=== PATIENT | male | born 1960 | race Caucasian/White ===

== ENCOUNTER 2016-11-14 15:50 | Emergency (ER) | payer OTHER ==
--- NOTE | 2016-11-14 16:56 | DIAGNOSTIC IMAGING REPORT ---
PROCEDURE: XR CHEST 1 VIEW INDICATION: JAW PAIN TECHNIQUE: Portable AP view 04:22 p.m. COMPARISON: None. FINDINGS: Lungs are clear. Heart and mediastinum are normal. Thorax is normal. IMPRESSION: 1. Negative chest.
--- NOTE | 2016-11-14 18:51 | ED ORDER SUMMARY ---
..... Patient: MYRIAM BOWDEN OrderSheet [facility] VisitID: [id number] [address] [place] [address] 56y, M Registration Date/Time: 11/14/2016 ORDER SHEET Weight: 86.1 kg (stated) Allergies: No Known Drug Allergy GENERAL ORDERS: EKG - ER Stat (16:22 11/14/2016 DDean R.N. per protocol) (Ack 16:27 RKaruga) (16:27 RKaruga) Chest 1V Urgent (16:27 11/14/2016 PHutchinson DO) (17:23 DDean R.N.) (17:24 Bing) Project Director (Continuous) (16:11/14/2016 PHutchinson DO) (16:32 DDean R.N.) UA-Culture if indicated Urgent (16:28 11/14/2016 PHutchinson DO) (Ack 17:25 RKaruga) (17:29 DDean R.N.) Cardiac Panel Stat (16:28 11/14/2016 PHutchinson DO) (17:22 DDean R.N.) (Ack 17:25 RKaruga) BNP Urgent (16:28 11/14/2016 PHutchinson DO) (17:23 DDean R.N.) (Ack 17:25 RKaruga) Amylase Urgent (16:28 11/14/2016 PHutchinson DO) (17:23 DDean R.N.) (Ack 17:25 RKaruga) TSH Urgent (16:28 11/14/2016 PHutchinson DO) (17:23 DDean R.N.) (Ack 17:25 RKaruga) Vitals (16:28 11/14/2016 PHutchinson DO) (16:32 DDean R.N.) Pulse oximeter (16:28 11/14/2016 PHutchinson DO) (16:32 DDean R.N.) ESR Urgent (16:30 11/14/2016 PHutchinson DO) (17:23 DDean R.N.) (Ack 17:25 RKaruga) EKG - RT Repeat Stat (18:00 11/14/2016 [facility]) (Ack 18:07 RKaruga) (18:28 DDean R.N.) Lipase Urgent (18:37 11/14/2016 [facility]) (18:42 DDean R.N.) MEDICATION ORDERS: Aspirin PO 325 mg (NOW) (16:27 11/14/2016 [facility]) (Ack 17:07 DDean R.N.) (17:40 DDean R.N.) IV FLUIDS: IV NS : initial bolus 250 mL (1000 mL/hr), then 250 mL/hr for X3 (NOW) (16:27 11/14/2016 [facility]) (Ack 17:07 DDean R.N.) (17:24 DDean R.N.) Toradol IV 30 mg (NOW) (18:11 11/14/2016 [facility]) (18:29 DDean R.N.) ORDER SHEET NOTES: [Electronically signed by Carmella Ness R.N. (22:54 11/14/2016)] [Electronically signed by Myriam Estrada DO (07:53 11/15/2016)] [Electronically locked/signed by Carmella Ness R.N. (22:54 11/14/2016)]
--- NOTE | 2016-11-14 18:51 | ED ORDER SUMMARY ---
..... Patient: MYRIAM BOWDEN OrderSheet [facility] VisitID: [id number] [address] [place] [address] 56y, M Registration Date/Time: 11/14/2016 ORDER SHEET Weight: 86.1 kg (stated) Allergies: No Known Drug Allergy GENERAL ORDERS: EKG - ER Stat (16:22 11/14/2016 DDean R.N. per protocol) (Ack 16:27 RKaruga) (16:27 RKaruga) Chest 1V Urgent (16:27 11/14/2016 PHutchinson DO) (17:23 DDean R.N.) (17:24 Bing) Machine Brusher (Continuous) (16:11/14/2016 PHutchinson DO) (16:32 DDean R.N.) UA-Culture if indicated Urgent (16:28 11/14/2016 PHutchinson DO) (Ack 17:25 RKaruga) (17:29 DDean R.N.) Cardiac Panel Stat (16:28 11/14/2016 PHutchinson DO) (17:22 DDean R.N.) (Ack 17:25 RKaruga) BNP Urgent (16:28 11/14/2016 PHutchinson DO) (17:23 DDean R.N.) (Ack 17:25 RKaruga) Amylase Urgent (16:28 11/14/2016 PHutchinson DO) (17:23 DDean R.N.) (Ack 17:25 RKaruga) TSH Urgent (16:28 11/14/2016 PHutchinson DO) (17:23 DDean R.N.) (Ack 17:25 RKaruga) Vitals (16:28 11/14/2016 PHutchinson DO) (16:32 DDean R.N.) Pulse oximeter (16:28 11/14/2016 PHutchinson DO) (16:32 DDean R.N.) ESR Urgent (16:30 11/14/2016 PHutchinson DO) (17:23 DDean R.N.) (Ack 17:25 RKaruga) EKG - RT Repeat Stat (18:00 11/14/2016 [facility]) (Ack 18:07 RKaruga) (18:28 DDean R.N.) Lipase Urgent (18:37 11/14/2016 [facility]) (18:42 DDean R.N.) MEDICATION ORDERS: Aspirin PO 325 mg (NOW) (16:27 11/14/2016 [facility]) (Ack 17:07 DDean R.N.) (17:40 DDean R.N.) IV FLUIDS: IV NS : initial bolus 250 mL (1000 mL/hr), then 250 mL/hr for X3 (NOW) (16:27 11/14/2016 [facility]) (Ack 17:07 DDean R.N.) (17:24 DDean R.N.) Toradol IV 30 mg (NOW) (18:11 11/14/2016 [facility]) (18:29 DDean R.N.) ORDER SHEET NOTES: [Electronically signed by Carmella Ness R.N. (22:54 11/14/2016)] [Electronically signed by Myriam Estrada DO (07:53 11/15/2016)] [Electronically locked/signed by Carmella Ness R.N. (22:54 11/14/2016)]
--- NOTE | 2016-11-14 18:51 | ED NURSING NOTES ---
Clinical Report - Nurses [facility] [address] [place] [address] 11/14/2016 15:54 Patient: MYRIAM BOWDEN TRIAGE Triage time 1610. Acuity: LEVEL 3. Chief Complaint: (Pt c/o left sided jaw pain yesterday at 1600, lasting about 2 hours and than again last night for about 2 hours at o2oo , subsided slowly-- states oset again at 11am. just a dull ache now). BERENICE COMA SCORE: Reddell Coma Scale: 15- eyes open spontaneously (4); best verbal response- oriented x 4 (5); best motor response- obeys commands (6). --16:19 Carmella Ness R.N. 16:10 11/14/16. BP: 141/83. HR: 67. RR: 18. O2 saturation: 98%. Temp: 98.2 F. Pain level now: 12/08. --16:19 Carmella Ness R.N. BERENICE COMA SCORE: Berenice Coma Scale: 15- eyes open spontaneously (4); best verbal response- oriented x 4 (5); best motor response- obeys commands (6). --16:21 Carmella Ness R.N. Weight: 86.1 kg stated. Height/Length: 68 inches Per Patient. BMI: 28.9. --16:14 Carmella Ness R.N. Medications ASA 975mg at 0200 . --16:15 Carmella Ness R.N. Amino Acids Oral. Multivitamin Oral. None. --16:15 Carmella Ness R.N. Ginsing. --16:16 Carmella Ness R.N. Gin-Zing Oral. L-Tryptophan Oral. Voltaren-XR Oral, hs. --16:16 Carmella Ness R.N. Allergies No Known Drug Allergy. --16:14 Carmella Ness R.N. History Arrived by private vehicle. Historian: patient. Unaccompanied. No primary care physician. This started yesterday. ( No facial droop noted, speech is clear, transfer knitter equal and strong.). PAST MEDICAL HX: Negative. SURGERY HX: Tonsillectomy. SOCIAL HX: Never smoker. Occasional alcohol use. No drug use. --16:19 Carmella Ness R.N. SURGERY HX: ( RT. leg vericous vein surg 11/13). --16:20 Carmella Ness R.N. Interventions ID band on patient. To treatment room. --16:19 Carmella Ness R.N. PHYSICAL ASSESSMENT 16:10. Ambulatory to room. Patient gowned. GENERAL / NEURO / PSYCH: Alert. Oriented X 4. Appears anxious. RESPIRATORY: Respirations not labored. Chest nontender. CVS: Capillary refill less than 2 seconds. GI / : Abdomen soft. SKIN: Skin is warm and dry. --16:21 Carmella Ness R.N. NURSING PROGRESS NOTES 16:10. Patient gowned. Head of bed elevated. Reassurance given. Patient identifiers checked. Call light placed in reach. Side rails up. Bed placed in lowest position. Patient ready for evaluation- chart flagged. --16:19 Carmella Ness R.N. 16:24. EKG time: (1624). EKG was ordered, performed and shown to the ED physician. YOUSIF Harding. --16:23 Carmella Ness R.N. 16:40. Portable chest x-ray ordered, performed and shown to the ED physician. --17:07 Carmella Ness R.N. 17:15 11/14/2016 Site #1 started via IV in the right antecubital space with an 20g angiocath, with aseptic technique and good blood return. Blood drawn: rainbow set. Labeled in the presence of the patient and sent to the lab. Saline lock flushed with 10 mL saline. --17:22 Carmella Ness R.N. 17:15 11/14/2016 Started bag #1 1000 mL IV Fluids IV NS (Saline); bolus of 250 mL over 15 minute(s) then at 250 mL/hr over 3 hour(s) via site #1 via IV pump. Allergies verified and confirmed 5 rights. IV patency established. IV site checked: no pain, redness, or swelling. IV flushed thoroughly pre- and post-medication administration. --17:24 Carmella Ness R.N. 17:25 11/14/16. Patient ID band checked for patient name and birthdate. Clean catch urine collected with return of yellow-colored clear urine; sample sent to lab for urinalysis and culture. Specimen labeled in the presence of the patient. ( ambulated to bathroom, UA obtained and sent to lab). --17:25 Carmella Ness R.N. 17:35 11/14/2016 Aspirin PO Tablets 324 mg given. Allergies verified and confirmed 5 rights. --17:40 Carmella Ness R.N. 17:30 11/14/16. BP: 139/99. HR: 71. RR: 18. O2 saturation: 98%. Temp: deferred. Pain level now: 11/07. --17:46 Carmella Ness R.N. 17:59 11/14/16. BP: 144/95. HR: 63. RR: 16. O2 saturation: 97%. Temp: deferred. Pain level now: 10. Additional comments: pt states pain has again gotten worse after drinking tea. states that every episode of pain follows when he eats or drinks something . --18:01 Carmella Ness R.N. EKG time: (18:05). EKG was performed by a tech and shown to the ED physician. --18:11 Hank Sher 18:29 11/14/2016 Toradol IVP 30 mg given over 1 minute(s) via site #1. IV patency established. IV site checked: no pain, redness, or swelling. IV flushed thoroughly pre- and post-medication administration. IVP given by RN. --18:29 Carmella Ness R.N. 18:35 11/14/2016 Site #1 removed upon discharge. Bandaid applied. --18:35 Carmella Ness R.N. 18:36 11/14/2016 IV Fluids IV NS Discontinued: bag #1 STOPPED upon discharge. Total amount infused: 350 mL. IV patency established. IV site checked: no pain, redness, or swelling. IV flushed thoroughly. --18:36 Carmella Ness R.N. DISPOSITION / DISCHARGE Condition at departure: improved and stable. No learning barriers present. Discharge instructions provided and reviewed with the patient and spouse. Patient and spouse verbalized understanding. Written instructions provided in Chinese. The patient was discharged home and accompanied by spouse. He left the Emergency Department ambulatory and via private vehicle. Spouse driving. --18:43 Carmella Ness R.N. 18:32 11/14/16. BP: 142/90. HR: 63. RR: 18. O2 saturation: 97%. Temp: deferred. Pain level now: 10/10. --18:43 Carmella Ness R.N. Departure time: 19:05 Nov 14 2016. --19:05 Mignon Laws R.N. Locked/Released at 11/14/2016 22:54 by Carmella Ness R.N.
--- NOTE | 2016-11-14 18:51 | ED CLINICAL REPORT ---
Clinical Report - Physicians/Mid Levels [facility] [address] [place] [address] 11/14/2016 15:54 Patient: MYRIAM BOWDEN Time Seen: 16:27. Arrived- By private vehicle. Historian- patient. HISTORY OF PRESENT ILLNESS Chief Complaint: JAW PAIN. At its maximum, severity described as moderate. When seen in the E.D., severity described as mild. Modifying factors. Not worsened by anything. Not relieved by anything. This started yesterday and is still present. It was gradual in onset and has been waxing/waning. No fatigue, muscle aches or weakness. Denies sleep problem. (Pt c/o left sided jaw pain yesterday at 1600, lasting about 2 hours and then again last night for about 2 hours at o2oo , subsided slowly-- states oset again at 11am. just a dull ache now. States pain always occurs in temporal proximity to oral intake, but never with exertion. He does regular exercise - states just 2 weeks ago, he cross country skied 9 miles without any jaw or CP or unexoected SOB.). Similar symptoms previously: None. Recent medical care: Not recently seen/assessed. REVIEW OF SYSTEMS No fever, sore throat, sinus drainage, nasal congestion or cough. No difficulty breathing, chest pain, abdominal pain, nausea or vomiting. No diarrhea, black stools, bloody stools, difficulty with urination or skin rash. No back pain or calf pain. The patient has had a moderate, intermittent left-sided headache (states jaw pain radiates to left side of head when severe - none now). No difficulty with ambulation. All systems otherwise negative, except as recorded above. PAST HISTORY See nurses notes. SURGERY HX: RT. leg varicose vein surg 11/13 Dental surgery (late Aug 2016). Surgeries: Tonsillectomy. SOCIAL HISTORY Never smoker. Occasional alcohol use. No drug use. ADDITIONAL NOTES The nursing notes have been reviewed. PHYSICAL EXAM Vital Signs: 11/14/2016 16:10 BP: 141/83. HR: 67. RR: 18. O2 saturation: 98%. Temp: 98.2 F. Pain level now: 12/08. Appearance: Alert. No acute distress. Eyes: Eyes normal inspection. No scleral icterus or pale conjunctivae. ENT: Pharynx normal. No pharyngeal erythema or tonsillar exudate. The mucous membranes are not dry. (left lower molar with filling; no pus discharge; no gingival swelling or fluctuance; no dental tenderness). Neck: Normal inspection. Neck supple. No JVD. CVS: Normal heart rate and rhythm. Heart sounds normal. Pulses normal. Respiratory: No respiratory distress. Breath sounds normal. Abdomen: No visible injury. Soft and nontender. Bowel sounds normal. No mass. Back: Normal inspection. Skin: Skin warm and dry. Normal skin color. Normal skin turgor. Extremities: Extremities exhibit normal ROM. No calf tenderness. No lower extremity edema. Neuro: Oriented X 3. No motor deficit. No sensory deficit. Reflexes normal. LABS, X-RAYS, AND EKG EKG: EKG time: (16:24). Normal sinus rhythm. Rate: 60. Normal P waves. Normal RADHA. Left axis deviation. Non-specific ST segment / T wave abnormalities. The study has been interpreted contemporaneously by me. The EKG appears to be a good tracing. EKG #2: EKG time: (18:05). Normal sinus rhythm. Rate: 65. Normal P waves. Normal RADHA. Left axis deviation. Non-specific ST segment / T wave abnormalities. Changes present when compared to prior EKG. (Q in V2 - may be lead placement - V2 moved). The study has been interpreted contemporaneously by me. The EKG appears to be a good tracing. Rhythm Strip #1: Normal sinus rhythm. Regular rhythm. Narrow QRS complexes. No ectopy. Chest X-ray: No acute disease. Normal lung markings present. Normal heart size. Mediastinum normal. Great vessels normal. No infiltrate. Views: AP (portable). Technique: good. The X-rays were interpreted contemporaneously by me. Laboratory Tests: UA-Culture if indicated: (NADINE: 11/14/2016 17:15) ( MsgRcvd 11/14/2016 18:00) Final results Test Result Flag Units (Reference) URINE COLOR YELLOW URINE APPEARANCE CLEAR URINE GLUCOSE NEGATIVE (NEGATIVE) URINE BILIRUBIN NEGATIVE (NEGATIVE) URINE KETONE NEGATIVE (NEGATIVE) URINE SPECIFIC GRAVITY 1.020 (1.010-1.030) URINE PH 6.0 (5.0-8.0) URINE PROTEIN NEGATIVE (NEGATIVE) URINE UROBILINOGEN 0.2 EU/dL (0.2-1.0) URINE NITRITE NEGATIVE (NEGATIVE) URINE BLOOD NEGATIVE (NEGATIVE) URINE LEUK ESTERASE NEGATIVE (NEGATIVE) URINE RBC 0-1 rbc/hpf (0-1) URINE WBC 0-1 wbc/hpf (0-1) URINE EPITHELIAL CELLS 0-1 EPI/hpf (0-5) URINE BACTERIA NONE SEEN (NONE SEEN) URINE COMMENT CULT NOT INDICATED URINE CULTURES ARE SET-UP BASED ON THE FOLLOWING CRITERIA:POSITIVE NITRITEPOSITIVE LEUKOCYTE ESTERASEGREATER THAN 10 WHITE BLOOD CELLSMODERATE (2+) OR GREATER BACTERIA ESR: (NADINE: 11/14/2016 17:15) ( [facility] [place] 11/14/2016 17:57) Final results Test Result Flag Units (Reference) SED RATE WESTERGREN 4 mm/hr (0-20) CBC w Diff: (NADINE: 11/14/2016 17:15) ( [facility] [place] 11/14/2016 17:38) Final results Test Result Flag Units (Reference) WHITE BLOOD COUNT 6.2 K/uL (4.5-11.5) RED BLOOD COUNT 5.73 M/uL (4.50-5.90) HEMOGLOBIN 16.9 gm/dL (13.5-17.5) HEMATOCRIT 49.6 % (41.0-53.0) MEAN CELL VOLUME 87 fL (80-100) MEAN CORPUSCULAR HGB 30 pg (26-34) MEAN CORPUSCULAR HGB CONC 34 g/dL (31-37) RED CELL DISTRIBUTION WIDTH 13.6 % (11.6-14.8) PLATELET COUNT 152 K/uL (150-400) NEUTROPHIL % 67.0 % (50-75) LYMPH % 15.7 L % (25-40) MONO % 11.0 % (3-14) EOSINOPHIL % 5.9 H % (0-4) BASOPHIL % 0.4 % (0-2) BNP: (NADINE: 11/14/2016 17:15) ( [facility] [place] 11/14/2016 17:58) Final results Test Result Flag Units (Reference) B-TYPE NATRIURETIC PEPTIDE 28.2 pg/ml (5-100) Lipase: (NADINE: 11/14/2016 17:15) ( [facility] [place] 11/14/2016 18:50) Final results Test Result Flag Units (Reference) AMYLASE 123 H U/L (25-115) THYROID STIMULATING HORMONE 2.076 uIU/mL (0.30-3.74) LIPASE 119 U/L (73-393) CHEM 13 PANEL: (NADINE: 11/14/2016 17:15) ( [facility] 11/14/2016 17:59) Final results Test Result Flag Units (Reference) GLUCOSE 98 mg/dL (70-110) BUN 31 H mg/dL (7-18) CREATININE 1.1 mg/dL (0.6-1.3) Estimated GFR >60 mL/min Estimated GFR- >60 mL/min Note: Persistent reduction over 3 months in eGFR<60 mL/min/1.73 m2 defines CKD. Patients with eGFR values>=60 mL/min/1.73 m2 may also have CKD if evidence ofpersistent proteinuria. Additional information may be foundat www.kidney.org. SODIUM 141 mmol/L (136-145) POTASSIUM 4.5 mmol/L (3.5-5.1) CHLORIDE 103 mmol/L (98-107) CARBON DIOXIDE 30 mmol/L (21-32) CALCIUM 9.3 mg/dL (8.5-10.1) TOTAL PROTEIN 7.6 g/dL (6.4-8.2) ALBUMIN 3.9 g/dL (3.3-5.0) BILIRUBIN, TOTAL 0.5 mg/dL (0.0-1.0) ALKALINE PHOSPHATASE 96 U/L (46-116) AST (SGOT) 23 U/L (15-37) ALT (SGPT) 39 U/L (12-78) CPK 47 U/L (24-260) MAGNESIUM 2.0 mg/dL (1.8-2.4) TROPONIN I <0.05 ng/mL (0.00-1.5) TROPONIN REFERENCE RANGE:<0.1 NEGATIVE0.1-1.5 INDETERMINANT>1.5 POSITIVE . Pulse Oximetry: 11/14/2016 16:10 O2 saturation: 98%. (FIO2 - room air). Interpretation: normal. PROGRESS AND PROCEDURES Course of Care: Toradol 30 mg IVP given. ASA 325 mg PO given. Patient is stable. Symptoms much better. Pt had episode of jaw / face discomfort during stay. ECG during episode was unchanged. Despite 24 hours of symptoms, his trop I remains neg. History is very atypical for ACS. Most c/w Trigeminal neuralgia vs odontogenic pain. Mild amylase elevation may be secondary to early salivary gland inflammation - but no tenderness or swelling of glands. I have offered repeat labs and further observstion, but, after full discussion of risks / benefits, he declines further tests, stating, "they are a waste of time"". He is strongly encouraged to return immediately and / or call 911 for any new or worsening symptoms or any concerns - his is present during the discussion. Patient/family counseled. Old ED records reviewed. Disposition: Discharged. Condition: stable and improved. CLINICAL IMPRESSION Acute nontraumatic pain in the face(Left side of jaw). Possible hypertension. Possible trigeminal neuralgia. Recent left lower jaw dental procedure Possible, early salivary gland inflammation. INSTRUCTIONS Do not work for three days. Drink plenty of fluids. (Take voltaren OR ibuprofen, but not both at the same time). Warnings: Further evaluation is necessary. It is very important to follow up with a physician. GENERAL WARNINGS: Return or contact your physician immediately if your condition worsens or changes unexpectedly, if not improving as expected, or if other problems arise. Your Current Medications: CONTINUE TAKING THE FOLLOWING MEDICATIONS: Amino Acids Oral. ASA 975mg at 0200 *. Gin-Zing Oral. Ginsing*. L-Tryptophan Oral. Multivitamin Oral. None*. Voltaren-XR Oral : hs. Prescription Medications: Hydrocodone/APAP 5mg / 325mg: take 1 orally every 8 hours as needed for pain. Dispense ten (10). No refill. Ibuprofen 600mg tablets: take 1 tablet orally every 8 hours as needed for pain. Dispense thirty (30). No refills. Follow-up: Follow up with your doctor in about three days. Follow up with a dentist. Call for the next available appointment. Screening today revealed the patient's blood pressure to be in the hypertensive range. The patient should follow up with a primary care provider for blood pressure management. (Electronically signed by Myriam Estrada DO 11/15/2016 7:53)
--- NOTE | 2016-11-15 07:53 | ED MED RECONCILIATION SUMMARY ---
Patient: DIANDRAKVNG Noonan Medication Reconciliation Report [facility] VisitID: [id number] [address] [place] [address] 56y, M Registration Date/Time: 11/14/2016 Weight: 86.1 kg Height/Length: 68 in. BMI: 28.9 ALLERGIES: No Known Drug Allergy The patient's Home Medications are listed below: CONTINUE TAKING THE FOLLOWING MEDICATIONS: Amino Acids Oral ASA 975mg at 0200 Gin-Zing Oral Ginsing L-Tryptophan Oral Multivitamin Oral Voltaren-XR Oral, hs The source(s) of the original Home Medication information: Not obtained. The following Medications were given to the patient in the Emergency Department: IV NS IV Fluids bolus 250 mL over 15 minute(s), then 250 mL/hr, administered: 11/14/2016 5:15:00 PM Aspirin [PO] PO 324 mg, administered: 11/14/2016 5:35:00 PM Toradol [IVP] IVP 30 mg, administered: 11/14/2016 6:29:00 PM The following Medications were prescribed to the patient: Hydrocodone/APAP 5mg / 325mg: take 1 orally every 8 hours as needed for pain. Dispense ten (10). No refill. -- Kvng sEtrada DO Ibuprofen 600mg tablets: take 1 tablet orally every 8 hours as needed for pain. Dispense thirty (30). No refills. -- Kvng Estrada DO
--- NOTE | 2016-11-15 07:53 | ED MAR SUMMARY ---
..... Medication Administration Record [facility] [address] [place] [address] Patient: MYRIAM BOWDEN Visit ID: [id number] 56y, M Weight: 86.1 kg Height/Length: 68 in BMI: 28.9 ALLERGIES: No Known Drug Allergy Start 17:15 11/14/2016 Carmella Ness R.N., Stop 18:36 11/14/2016 Carmella Ness R.N. Medication Administered: IV NS (SALINE), Dose: IV Fluids over 3 hour(s), Rate: 250 mL/hr, Bolus: 250 mL over 15 minute(s), Dispensed: 1000 mL bag, Site: #1 right AC. Medication Ordered: IV NS : initial bolus 250 mL (1000 mL/hr), then 250 mL/hr for X3 (NOW). Given 17:35 11/14/2016 Carmella Ness R.N. Medication Administered: ASPIRIN [PO], Dose: 324 mg Tablets PO. Medication Ordered: Aspirin PO 325 mg (NOW). Given 18:29 11/14/2016 Carmella Ness R.N. Medication Administered: TORADOL [IVP], Dose: 30 mg IVP over 1 minute(s), Site: #1 right AC. Medication Ordered: Toradol IV 30 mg (NOW).
--- NOTE | 2016-11-15 07:53 | ED MED RECONCILIATION SUMMARY ---
Patient: DIANDRAKVNG Noonan Medication Reconciliation Report [facility] VisitID: [id number] [address] [place] [address] 56y, M Registration Date/Time: 11/14/2016 Weight: 86.1 kg Height/Length: 68 in. BMI: 28.9 ALLERGIES: No Known Drug Allergy The patient's Home Medications are listed below: CONTINUE TAKING THE FOLLOWING MEDICATIONS: Amino Acids Oral ASA 975mg at 0200 Gin-Zing Oral Ginsing L-Tryptophan Oral Multivitamin Oral Voltaren-XR Oral, hs The source(s) of the original Home Medication information: Not obtained. The following Medications were given to the patient in the Emergency Department: IV NS IV Fluids bolus 250 mL over 15 minute(s), then 250 mL/hr, administered: 11/14/2016 5:15:00 PM Aspirin [PO] PO 324 mg, administered: 11/14/2016 5:35:00 PM Toradol [IVP] IVP 30 mg, administered: 11/14/2016 6:29:00 PM The following Medications were prescribed to the patient: Hydrocodone/APAP 5mg / 325mg: take 1 orally every 8 hours as needed for pain. Dispense ten (10). No refill. -- Kvng Estrada DO Ibuprofen 600mg tablets: take 1 tablet orally every 8 hours as needed for pain. Dispense thirty (30). No refills. -- Kvng Estrada DO
--- NOTE | 2016-11-15 07:53 | ED DISCHARGE INSTRUCTIONS ---
Patient: MYRIAM BOWDEN General Instructions [facility] VisitID: [id number] [address] [place] [address] 56y, M Registration Date/Time: 11/14/2016 Acute nontraumatic pain in the face(Left side of jaw). Recent left lower jaw dental procedure Possible, early salivary gland inflammation. INSTRUCTIONS Do not work for three days. Drink plenty of fluids. (Take voltaren OR ibuprofen, but not both at the same time). Warnings: Further evaluation is necessary. It is very important to follow up with a physician. GENERAL WARNINGS: Return or contact your physician immediately if your condition worsens or changes unexpectedly, if not improving as expected, or if other problems arise. Your Current Medications: CONTINUE TAKING THE FOLLOWING MEDICATIONS: Amino Acids Oral. ASA 975mg at 0200 *. Gin-Zing Oral. Ginsing*. L-Tryptophan Oral. Multivitamin Oral. None*. Voltaren-XR Oral : hs. Prescription Medications: Hydrocodone/APAP 5mg / 325mg: take 1 orally every 8 hours as needed for pain. Dispense ten (10). No refill. Ibuprofen 600mg tablets: take 1 tablet orally every 8 hours as needed for pain. Dispense thirty (30). No refills. Follow-up: Follow up with your doctor in about three days. Follow up with a dentist. Call for the next available appointment. Screening today revealed the patient's blood pressure to be in the hypertensive range. The patient should follow up with a primary care provider for blood pressure management. ADDITIONAL INFORMATION Pain, Uncertain Cause [Acute] Pain is the bodys way of calling attention to a problem. Pain can be caused by many conditions - some minor, some serious. In your case, we were not able to find the exact cause for your pain. However, at this time there is no sign of any serious or life-threatening illness causing your pain. Sometimes more tests will be needed to determine the cause. Other times, just allowing more time to pass will either make it clear what the problem is, or the pain will go away by itself. Home Care: You may use acetaminophen (Tylenol) or ibuprofen (Motrin, Advil) to control pain, unless another medicine was prescribed. [NOTE: If you have chronic liver or kidney disease or ever had a stomach ulcer or GI bleeding, talk with your doctor before using these medicines.] Follow Up with your doctor or as advised by our staff. Get Prompt Medical Attention if any of the following occur: Changes in the pattern of your pain Appearance of new symptoms Fever of 100.4F (38C) or higher, or as directed by your healthcare provider Hydrocodone Bitartrate, Acetaminophen Oral tablet What is this medicine? ACETAMINOPHEN; HYDROCODONE (a set a PRAMOD bettie fen; marco a droe KOE done) is a pain reliever. It is used to treat mild to moderate pain. How should I use this medicine? Take this medicine by mouth. Swallow it with a full glass of water. Follow the directions on the prescription label. If the medicine upsets your stomach, take the medicine with food or milk. Do not take more than you are told to take. Talk to your manager group regarding the use of this medicine in children. This medicine is not approved for use in children. What side effects may I notice from receiving this medicine? Side effects that you should report to your doctor or health child day care center worker as soon as possible: allergic reactions like skin rash, itching or hives, swelling of the face, lips, or tongue breathing problems confusion feeling faint or lightheaded, falls stomach pain yellowing of the eyes or skin Side effects that usually do not require medical attention (report to your doctor or health child day care center worker if they continue or are bothersome): nausea, vomiting stomach upset What may interact with this medicine? alcohol antihistamines isoniazid medicines for depression, anxiety, or psychotic disturbances medicines for sleep muscle relaxants naltrexone narcotic medicines (opiates) for pain phenobarbital ritonavir tramadol What if I miss a dose? If you miss a dose, take it as soon as you can. If it is almost time for your next dose, take only that dose. Do not take double or extra doses. Where should I keep my medicine? Keep out of the reach of children. This medicine can be abused. Keep your medicine in a safe place to protect it from theft. Do not share this medicine with anyone. Selling or giving away this medicine is dangerous and against the law. Store at room temperature between 15 and 30 degrees C (59 and 86 degrees F). Protect from light. Keep container tightly closed. Throw away any unused medicine after the expiration date. Discard unused medicine and used packaging carefully. Pets and children can be harmed if they find used or lost packages. What should I tell my health care provider before I take this medicine? They need to know if you have any of these conditions: brain tumor Crohn's disease, inflammatory bowel disease, or ulcerative colitis drink more than 3 alcohol-containing drinks per day drug abuse or addiction head injury heart or circulation problems kidney disease or problems going to the bathroom liver disease lung disease, asthma, or breathing problems an unusual or allergic reaction to acetaminophen, hydrocodone, other opioid analgesics, other medicines, foods, dyes, or preservatives or trying to get breast-feeding What should I watch for while using this medicine? Tell your doctor or health child day care center worker if your pain does not go away, if it gets worse, or if you have new or a different type of pain. You may develop tolerance to the medicine. Tolerance means that you will need a higher dose of the medicine for pain relief. Tolerance is normal and is expected if you take the medicine for a long time. Do not suddenly stop taking your medicine because you may develop a severe reaction. Your body becomes used to the medicine. This does NOT mean you are addicted. Addiction is a behavior related to getting and using a drug for a non-medical reason. If you have pain, you have a medical reason to take pain medicine. Your doctor will tell you how much medicine to take. If your doctor wants you to stop the medicine, the dose will be slowly lowered over time to avoid any side effects. You may get drowsy or dizzy when you first start taking the medicine or change doses. Do not drive, use machinery, or do anything that may be dangerous until you know how the medicine affects you. Stand or sit up slowly. There are different types of narcotic medicines (opiates) for pain. If you take more than one type at the same time, you may have more side effects. Give your health care provider a list of all medicines you use. Your doctor will tell you how much medicine to take. Do not take more medicine than directed. Call emergency for help if you have problems breathing. The medicine will cause constipation. Try to have a bowel movement at least every 2 to 3 days. If you do not have a bowel movement for 3 days, call your doctor or health child day care center worker. Too much acetaminophen can be very dangerous. Do not take Tylenol (acetaminophen) or medicines that contain acetaminophen with this medicine. Many non-prescription medicines contain acetaminophen. Always read the labels carefully. Ibuprofen Oral tablet What is this medicine? IBUPROFEN (eye BYOO proe fen) is a non-steroidal anti-inflammatory drug (NSAID). It is used for dental pain, fever, headaches or migraines, osteoarthritis, rheumatoid arthritis, or painful monthly periods. It can also relieve minor aches and pains caused by a cold, flu, or sore throat. How should I use this medicine? Take this medicine by mouth with a glass of water. Follow the directions on the prescription label. Take this medicine with food if your stomach gets upset. Try to not lie down for at least 10 minutes after you take the medicine. Take your medicine at regular intervals. Do not take your medicine more often than directed. A special MedGuide will be given to you by the pharmacist with each prescription and refill. Be sure to read this information carefully each time. Talk to your manager group regarding the use of this medicine in children. Special care may be needed. What side effects may I notice from receiving this medicine? Side effects that you should report to your doctor or health child day care center worker as soon as possible: allergic reactions like skin rash, itching or hives, swelling of the face, lips, or tongue black or bloody stools, blood in the urine or in vomit breathing problems changes in vision chest pain general ill feeling or flu-like symptoms nausea or vomiting redness, blistering, peeling or loosening of the skin, including inside the mouth slurred speech or weakness on one side of the body stomach pain unexplained weight gain or swelling unusually weak or tired yellowing of eyes or skin Side effects that usually do not require medical attention (report to your doctor or health child day care center worker if they continue or are bothersome): constipation or diarrhea dizziness gas or heartburn stomach upset What may interact with this medicine? Do not take this medicine with any of the following medications: cidofovir ketorolac methotrexate pemetrexed This medicine may also interact with the following medications: alcohol aspirin diuretics lithium other drugs for inflammation like prednisone warfarin What if I miss a dose? If you miss a dose, take it as soon as you can. If it is almost time for your next dose, take only that dose. Do not take double or extra doses. Where should I keep my medicine? Keep out of the reach of children. Store at room temperature between 15 and 30 degrees C (59 and 86 degrees F). Keep container tightly closed. Throw away any unused medicine after the expiration date. What should I tell my health care provider before I take this medicine? They need to know if you have any of these conditions: asthma cigarette smoker drink more than 3 alcohol containing drinks a day heart disease or circulation problems such as heart failure or leg edema (fluid retention) high blood pressure kidney disease liver disease stomach bleeding or ulcers an unusual or allergic reaction to ibuprofen, aspirin, other NSAIDS, other medicines, foods, dyes, or preservatives or trying to get breast-feeding What should I watch for while using this medicine? Tell your doctor or healthcare professional if your symptoms do not start to get better or if they get worse. This medicine does not prevent heart attack or stroke. In fact, this medicine may increase the chance of a heart attack or stroke. The chance may increase with longer use of this medicine and in people who have heart disease. If you take aspirin to prevent heart attack or stroke, talk with your doctor or health child day care center worker. Do not take other medicines that contain aspirin, ibuprofen, or naproxen with this medicine. Side effects such as stomach upset, nausea, or ulcers may be more likely to occur. Many medicines available without a prescription should not be taken with this medicine. This medicine can cause ulcers and bleeding in the stomach and intestines at any time during treatment. Ulcers and bleeding can happen without warning symptoms and can cause . To reduce your risk, do not smoke cigarettes or drink alcohol while you are taking this medicine. You may get drowsy or dizzy. Do not drive, use machinery, or do anything that needs mental alertness until you know how this medicine affects you. Do not stand or sit up quickly, especially if you are an older patient. This reduces the risk of dizzy or fainting spells. This medicine can cause you to bleed more easily. Try to avoid damage to your teeth and gums when you brush or floss your teeth. You have been given the following additional information: Pain, Uncertain Cause (Acute) Hydrocodone Bitartrate, Acetaminophen Oral tablet Ibuprofen Oral tablet Do not work for three days. (Electronically signed by Myriam Estrada DO 11/15/2016 7:53)
--- NOTE | 2016-11-15 07:53 | ED MAR SUMMARY ---
..... Medication Administration Record [facility] [address] [place] [address] Patient: MYRIAM BOWDEN Visit ID: [id number] 56y, M Weight: 86.1 kg Height/Length: 68 in BMI: 28.9 ALLERGIES: No Known Drug Allergy Start 17:15 11/14/2016 Carmella Ness R.N., Stop 18:36 11/14/2016 Carmella Ness R.N. Medication Administered: IV NS (SALINE), Dose: IV Fluids over 3 hour(s), Rate: 250 mL/hr, Bolus: 250 mL over 15 minute(s), Dispensed: 1000 mL bag, Site: #1 right AC. Medication Ordered: IV NS : initial bolus 250 mL (1000 mL/hr), then 250 mL/hr for X3 (NOW). Given 17:35 11/14/2016 Carmella Ness R.N. Medication Administered: ASPIRIN [PO], Dose: 324 mg Tablets PO. Medication Ordered: Aspirin PO 325 mg (NOW). Given 18:29 11/14/2016 Carmella Ness R.N. Medication Administered: TORADOL [IVP], Dose: 30 mg IVP over 1 minute(s), Site: #1 right AC. Medication Ordered: Toradol IV 30 mg (NOW).
== END 2016-11-14 19:05 | disposition home or self-care (01) ==
LOC: ED SRH 15:50
DX: R68.84 Jaw pain (principal); Z79.899 Other long term (current) drug therapy
CPT/HCPCS: 90004; 90100; 90616; 91320; 92235; 92530; 92610; 92720; 93140; 95059; 95150